=== PATIENT | female | born 1970 | race Caucasian/White ===

== ENCOUNTER → 2018-08-18 | Outpatient (CLI) | payer OTHER ==
[~2018-08-18] MED LIST: Amoxicillin500 MG PO; LEVSOD50 PO; MEDR10 PO; Norco 5-325 Ta1 EACH PO; Pseudoephedrine30 MG PO
[2018-08-20 14:12] LABS: HPV 16 Negative (Negative); HPV 18 Negative (Negative); HPV OTHER HR TYPES Negative (Negative)
== END | disposition home or self-care (01) ==
LOC: LAB SHORT 14:44 → LAB 14:44
PROVIDERS: Nurse Practitioner Family
DX: Z12.4 Encounter for screening for malignant neoplasm of cervix (principal)
CPT/HCPCS: 87624; G0123

== ENCOUNTER 2021-12-03 12:07 | Day surgery (SDC) | payer OTHER ==
[~2021-12-03] VITALS: Ht 162.6 cm; Wt 89.6 kg
[~2021-12-03 12:07] MED LIST changes: +MULTI-VITAMIN1 EAC2 PO; +Ventolin/Prove6.7 GM INH
--- NOTE | 2021-12-03 13:11 | NUR ---
History, Chart, Medications and Allergies reviewed before start of procedure. Lungs clear T/O to Auscultation. Patient confirms NPO status and agrees with scheduled surgery. Pre-Op teaching done. Pt verbalizes understanding. Patient States Post-Procedure ride home has been arranged. PT REPORTS POST MENOPAUSE HX, NO HCG INDICATED.
--- NOTE | 2021-12-03 13:14 | NUR ---
12/03/21 1314 Mansoor Espitia History, Chart, Medications and Allergies reviewed before start of procedure. Patient confirms NPO status and agrees with scheduled surgery. 3-LEAD EKG REVIEWED WITH PHYSICIAN PRIOR TO START OF PROCEDURE. MONITOR INTACT WITH CONTINUOUS PULSE OXIMETRY AND INTERMITTENT BP. PATIENT DETERMINED TO BE ASA APPROPRIATE FOR PROPOFOL SEDATION PRIOR TO START OF PROCEDURE BY DR. MORALES.
--- NOTE | 2021-12-03 13:43 | NUR ---
ARRIVED FROM ENDO ROOM 1 SLEEPING VSS
--- NOTE | 2021-12-03 14:08 | NUR ---
PATIENT GETTING DRESSED AT THIS TIME.
--- NOTE | 2021-12-03 14:26 | NUR ---
Discharge instructions reviewed with patient. Patient verbalizes understanding. Copy given to patient to take home. Patient States Post-Procedure ride home has been arranged.
== END 2021-12-03 23:45 | disposition home or self-care (01) ==
LOC: ORSCMMR 12:07 → ORD 13:00 → ORSCMMR 13:00
PROVIDERS: Surgery
PROC: 0DJD8ZZ Inspection of Lower Intestinal Tract, Via Natural or Artificial Opening Endoscopic (ICD-10-PCS; principal; 2021-12-03 13:00)
DX: Z12.11 Encounter for screening for malignant neoplasm of colon (principal); Z79.899 Other long term (current) drug therapy
CPT/HCPCS: J2704; J7120